=== PATIENT | male | born 1965 | race Caucasian/White ===

== ENCOUNTER → 2020-01-30 07:41 | Outpatient (CLI) | payer BC, SELFPAY ==
[2020-01-30 08:27] LABS: Basophils % 0.3 % (0.1-2.0); Eosinophils # 0.3 K/mm3 (0.0-0.4); Eosinophils % 4.1 % (0.1-12.0); Hematocrit 43.6 % (42.0-52.0); Hemoglobin 14.8 g/dL (14.1-18.0); Lymphocytes # 1.3 K/mm3 (0.7-4.5); Lymphocytes % 20.3 % (10-50); Mean Corpuscular Hemoglobin 31.6 pg (27.0-31.2); Mean Corpuscular Volume 92.8 fl (80-94); Mean Platelet Volume 8.2 fl (7.4-10.4); Monocytes # 0.3 K/mm3 (0.1-1.0); Monocytes % 4.7 % (1.7-9.3); Neutrophils # 4.5 K/mm3 (1.8-7.8); Neutrophils % 70.5 % (37.0-80.0); Platelet Count 305 K/mm3 (142-424); Red Cell Distribution Width 12.9 % (11.5-17.5); White Blood Count 6.4 K/mm3 (4.8-10.8)
[2020-01-30 09:16] LABS: Chloride 108 mmol/L (98-107); Potassium 4.3 mmoL/L (3.5-5.1); Sodium 137 mmol/L (136-145)
[2020-01-30 09:18] LABS: Alanine Aminotransferase 22 U/L (12-78); Aspartate Amino Transferase 21 U/L (17-59); Blood Urea Nitrogen 14 mg/dl (9-20); Estimated Glomerular Filt Rate 88 ml/min (>60); GFR (African American) 106 ML/MIN (>60)
[2020-01-30 09:19] LABS: Albumin Level 4.1 g/dl (3.5-5.0); Albumin/Globulin Ratio 1.9 (1.1-1.8); Alkaline Phosphatase 44 U/L (38-126); Anion Gap 8.3 mEq/L (5-15); Bilirubin,Total 0.6 mg/dl (0.2-1.3); Calcium 8.7 mg/dl (8.4-10.2); Carbon Dioxide 25 mmol/L (22.0-30.0); Cholesterol 122 mg/dl (140-200); Globulin 2.2 g/dL (1.3-3.2); Glucose 100 mg/dl (74-100); Magnesium 2.1 mg/dl (1.6-2.3); Total Protein,Serum 6.3 g/dl (6.3-8.2); Triglycerides 53 mg/dl (30-150); VLDL Cholesterol 11 mg/dL (0-40)
[2020-01-30 09:20] LABS: HDL Cholesterol 41 mg/dl (40-60)
[2020-01-30 09:30] LABS: Direct LDL Cholesterol 75.23 mg/dL (100-129)
[2020-01-30 09:35] LABS: Triiodothryronine (T3) Uptake 36 % (23.5-40.5)
[2020-01-30 09:36] LABS: Free Thyroxine Index 3.1 ug/dL (5.93-13.13); T4 (Thyroxine) 8.6 ug/dl (5.53-11.0)
[2020-01-30 11:08] LABS: 25-OH Vitamin D, Total 39.5 ng/mL (30-100)
[2020-01-31 08:21] LABS: Vitamin B12 337 pg/mL (232-1245)
[2020-02-13 18:14] LABS: Vitamin C 0.5 mg/dL
== END ==
PROVIDERS: Visit Provider Internal Medicine Adolescent Medicine
DX: R07.9 Chest pain, unspecified (principal); R53.83 Other fatigue; R53.81 Other malaise; R43.2 Parageusia; R43.0 Anosmia
CPT/HCPCS: 36415; 80053; 80061; 82180; 82306; 82607; 83735; 84436; 84443; 84479; 85025

== ENCOUNTER → 2020-02-03 09:12 | Outpatient (CLI) | payer BC, SELFPAY ==
--- NOTE | 2020-02-03 | CA_ITS ---
APPROVED REPORT Exam: Exercise Treadmill Technologist: Anne Jennings Ht: 5 ft 8 in Wt: 214 lbs BSA: 2.10 m2 HR: 75 bpm BP: 123/74 mmHg Indications: Chest pain at rest Medical History Medications: None,,,,, Stress Test Details Test: Julio César HR Resting HR: 85 bpm Max Heart Rate (APMHR): 166 bpm Max HR Achieved: 172 bpm Target HR (85% APMHR): 141 bpm % of APMHR: 103 Recovery HR: 96 bpm BP Resting BP: 123.0/74.0 mmHg Max BP: 200.0/86.0 mmHg Recovery BP: 122.0/72.0 mmHg ECG Clinical Exercise duration: 09:35 min Highest Stage Achieved: Exercise capacity: 10.1 METs Stress ECG Conclusion Resting ECG: Normal sinus rhythm, ST-T abnormalities in leads III and aVF Patient exercised 9:35 on Julio César Protocol. Test stopped due to shortness of air, fatigue. Symptoms: No chest pain. Arrhythmias/Ectopy: Rare PAC ST-T Changes: Normal ST response to exercise with no significant change in baseline inferior lead abnormalities. However, in recovery, there is exaggeration of baseline abnormalities as well as NS T wave changes in leads II, V5 and V6. Conclusion: Probably normal GXT. GXT only (no imaging) Electronically signed by : Ronan Castellanos, 02/08/2020 12:06:45
== END ==
PROVIDERS: PCP Internal Medicine Adolescent Medicine; Visit Provider Internal Medicine Adolescent Medicine
DX: R07.9 Chest pain, unspecified (principal)
CPT/HCPCS: 93017

== ENCOUNTER 2020-05-28 20:08 | Emergency (ER) | payer BC, OTHER, SELFPAY ==
[2020-05-28 20:18] VITALS: BP 116/76; PULSE 62; RESP 16; TEMP 36.9; O2SAT 99; BMI 32.5
--- NOTE | 2020-05-28 20:43 | HMH.EDGENADL ---
ED Disposition Clinical Impression: Corneal rust ring of right eye Disposition: Home, Self-Care Condition on Discharge: Good Instructions: DI for Eye Pain Referrals: Ronan Castellanos MD [Primary Care Provider] - - Critical Care Critical Care Time: No Attestation: On 05/28/20, the high probability of a clinically significant, sudden or life threatening deterioration of the following system(s) required my full and direct attention, intervention and personal management. The time I documented below is in addition to time spent performing reported procedures but includes the following listed in this critical care notation. Medical Decision Making - Medical Records Medical records reviewed: Yes: I reviewed the patient's medical records. - Cody Inquiry Pt receiving controlled substance: No Vital Signs: 05/28/20 20:18 Temperature 98.4 F Temperature Source Oral Pulse Rate [Right] 62 Respiratory Rate 16 Blood Pressure [Right Arm] 116/76 Blood Pressure Mean [Right Arm] 89 Blood Pressure Source [Right Arm] Automatic Cuff Blood Pressure Position [Right Arm] Sitting 02 Sat by Pulse Oximetry 99 Oxygen Delivery Method Room Air Medical Decision Narrative: 54-year-old male presenting for foreign object sensation. Occurred at 3 PM. Patient continues to have photophobia after washing his eyes and for object removal at home. Patient was given tetracaine drop, patient foreign object was removed via Q-tip. Fluorescein stain was negative for abrasion, ulcer, holli sign was also negative. Patient was prescribed erythromycin ointment, patient still has a rust ring present after foreign object removal, given that this is in his visual axis, patient will need ophthalmology follow-up for removal in the future. Amenable to plan, discharged home. visual acuity to be 20/40 in both eyes as well as combined which is his baseline. General Adult HPI - General Chief complaint: Eye Problems Stated complaint: AO 05/28@1500 FB in R Eye Time Seen by Provider: 05/28/20 20:30 Mode of Arrival: Ambulatory Source of Information: Patient Limitations: No Limitations Description of Symptoms (Recalled from ER Triage Doc. by RN): Pt was grinding off powder coat and got something in his right eye. Eye is red and watering. - History of Present Illness HPI narrative: 54-year-old male no past medical history presenting for eye pain. Patient has foreign object sensation in his right eye after grinding paint. This occurred around 3 PM. Patient was seen by family friend who is a nurse who attempted to remove the object with a Q-tip was unable to. Patient denies any visual acuity changes, headache, photophobia. And did do copious irrigation of his eye and used Visine but was unable to remove the object. Patient presents for work-up. Does not wear contact lens. - Related Data Previous Rx's Medication Instructions Recorded amoxicillin 875 mg tablet 875 mg PO BID 10 Days #20 tab 01/31/19 Allergies Allergy/AdvReac Type Severity Reaction Status Date / Time No Known Allergies Allergy Verified 01/31/19 11:31 [facility] History - Hepatitis A Screen Drug use history?: No High risk sexual behaviors?: No History of sexually transmitted infection?: No Currently employed?: No Childcare worker?: No Do you have indoor plumbing?: Yes Do you have electricity?: Yes Attestation statement:: This patient has been screened for Hepatitis A risk factors. I have reviewed the patient's past medical history: Yes Other Surgeries: Yes: No Previous Surgery Amputation: No - Social History Smoking Status: Current every day smoker Tobacco Type: cigarettes, smokeless tobacco # Packs/Day (cigarettes): 1 #Yrs smoked (if former smoker): 30 Alcohol Intake: never Substance Use Type: denies use Occupational Status: employed Family Hx:: No significant family history ROS Obtained: Yes All systems reviewed & no additional complaints Physical Exam - Gen
[2020-05-28 20:55] VITALS: BP 122/74; PULSE 64; RESP 16; TEMP 36.9; O2SAT 99
== END 2020-05-28 20:59 | disposition home or self-care (01) ==
PROVIDERS: Emergency Provider Emergency Medicine; PCP Internal Medicine Adolescent Medicine
DX: T15.01XA Foreign body in cornea, right eye, initial encounter (principal); F17.210 Nicotine dependence, cigarettes, uncomplicated; Y99.0 Civilian activity done for income or pay
CPT/HCPCS: 65220; 99281

== ENCOUNTER 2021-03-07 17:58 | Emergency (ER) | payer BC, SELFPAY ==
[2021-03-07 17:58] VITALS: BP 147/96; PULSE 76; RESP 20; TEMP 36.8; O2SAT 96; BMI 34.9
--- NOTE | 2021-03-07 19:30 | HMH.EDUTC ---
[facility] [place] Disposition Clinical Impression: Exposure to COVID-19 virus Disposition: Home, Self-Care Condition on Discharge: Good Instructions: DI for COVID-19 (Suspected or Confirmed ), Preventing the Spread of Coronavirus Discharge Instructions Additional Instructions: Drink plenty of fluids. Take tylenol for pain or fever. Return if you begin to have difficulty breathing. Follow up with your regular doctor. GO TO THE ER FOR ANY WORSENING SYMPTOMS Referrals: Ronan Castellanos MD [Primary Care Provider] - Time of Disposition: 19:34 Medical Decision Making - Medical Records Medical records reviewed: No: I reviewed the patient's medical records. - Cody Inquiry Pt receiving controlled substance: No Vital Signs: 03/07/21 17:58 03/07/21 19:40 Temperature 98.3 F 98.3 F Temperature Source Oral Pulse Rate 76 Pulse Rate [Left Radial] 76 Respiratory Rate 20 20 Blood Pressure 147/96 H Blood Pressure [Right Arm] 147/96 H Blood Pressure Mean [Right Arm] 113 Blood Pressure Source Automatic Cuff Blood Pressure Source [Right Arm] Automatic Cuff Blood Pressure Position Sitting Blood Pressure Position [Right Arm] Sitting 02 Sat by Pulse Oximetry 96 Oxygen Delivery Method Room Air Room Air Orders (Tests/Meds): ORDERS Category Date Time Status Covid-19 Nasal PCR ([facility]) Routine Lab 03/07/21 19:11 Received [facility] [place] HPI - General Stated complaint: covid test Time Seen by Provider: 03/07/21 19:30 Mode of Arrival: Ambulatory Source of Information: Patient Limitations: No Limitations Description of Symptoms (Recalled from Triage Doc. by RN): exposure to covid, no symptoms HEENT Symptoms (Recalled from RN notes): No Resp Symptoms (Recalled from RN notes): No Skin Symptoms (Recalled from RN notes): No MS Symptoms (Recalled from RN notes): No Functional Status (Recalled from RN notes): wnl - History of Present Illness Provider Complaint: He is here to get a covid test. He denies any symptom so far. - Related Data Previous Rx's Medication Instructions Recorded amoxicillin 875 mg tablet 875 mg PO BID 10 Days #20 tab 01/31/19 Allergies Allergy/AdvReac Type Severity Reaction Status Date / Time No Known Allergies Allergy Verified 01/31/19 11:31 - Worker's Comp Is this a Worker's Comp case?: No [facility] History - Hepatitis A Screen Drug use history?: No High risk sexual behaviors?: No History of sexually transmitted infection?: No Currently employed?: No Childcare worker?: No Do you have indoor plumbing?: Yes Do you have electricity?: Yes Attestation statement:: This patient has been screened for Hepatitis A risk factors. I have reviewed the patient's past medical history: Yes Other Surgeries: Yes: No Previous Surgery Amputation: No - Social History Smoking Status: Current every day smoker Tobacco Type: cigarettes, smokeless tobacco # Packs/Day (cigarettes): 1 #Yrs smoked (if former smoker): 30 Alcohol Intake: never Substance Use Type: denies use Occupational Status: employed Family Hx:: No significant family history ROS Obtained: Yes All systems reviewed & no additional complaints - Constitutional Constitutional: Reports system reviewed and no additional complaints, except as docu - Eyes Eyes: Reports system reviewed and no additional complaints, except as docu - ENT Ears, Nose, Mouth, and Throat: Reports system reviewed and no additional complaints, except as docu - Cardiovascular Cardiovascular: Reports system reviewed and no additional complaints, except as docu - Respiratory Respiratory: Reports system reviewed and no additional complaints, except as docu - Gastrointestinal Gastrointestingal: Reports: system reviewed and no additional complaints, except as docu Physical Exam - General General appearance: alert, in no apparent distress - Head Head exam: atraumatic, normocephalic, normal inspection - Eye Eye exam: Present: normal appearance
[2021-03-07 19:40] VITALS: BP 147/96; PULSE 76; RESP 20; TEMP 36.8; O2SAT 96
== END 2021-03-07 19:40 | disposition home or self-care (01) ==
PROVIDERS: Emergency Provider Nurse Practitioner Family; PCP Internal Medicine Adolescent Medicine
DX: Z20.822 Contact with and (suspected) exposure to COVID-19 (principal); F17.210 Nicotine dependence, cigarettes, uncomplicated
CPT/HCPCS: 99202; G0463; U0003

== ENCOUNTER → 2021-04-25 12:33 | Outpatient (CLI) | payer BC, SELFPAY | PROVIDERS: PCP Internal Medicine Adolescent Medicine; Visit Provider Nurse Practitioner | DX: Z20.822 Contact with and (suspected) exposure to COVID-19 (principal) | CPT/HCPCS: C9803; U0003; U0005 ==

== ENCOUNTER → 2021-08-29 15:53 | Outpatient (CLI) | payer BC, SELFPAY | PROVIDERS: Visit Provider Nurse Practitioner | DX: U07.1 COVID-19 (principal) | CPT/HCPCS: C9803; U0003; U0005 ==

== ENCOUNTER → 2021-09-08 10:39 | Outpatient (CLI) | payer BC, SELFPAY ==
[2021-09-08 10:53] LABS: Basophils # 0.1 K/mm3 (0-0.2); Basophils % 1.1 % (0.1-2.0); Eosinophils # 0.2 K/mm3 (0.0-0.4); Eosinophils % 2.1 % (0.1-12.0); Hematocrit 45.4 % (42.0-52.0); Hemoglobin 15.1 g/dL (14.1-18.0); Lymphocytes # 1.8 K/mm3 (0.7-4.5); Lymphocytes % 22.2 % (10-50); Mean Corpuscular HGB Conc 33.4 g/dL (31.8-35.4); Mean Corpuscular Volume 92.8 fl (80-94); Mean Platelet Volume 7.4 fl (7.4-10.4); Monocytes # 0.3 K/mm3 (0.1-1.0); Monocytes % 4.3 % (1.7-9.3); Neutrophils # 5.6 K/mm3 (1.8-7.8); Neutrophils % 70.3 % (37.0-80.0); Platelet Count 343 K/mm3 (142-424); Red Blood Count 4.89 M/mm3 (4.60-6.20); Red Cell Distribution Width 12.7 % (11.5-17.5)
[2021-09-08 11:03] LABS: Alanine Aminotransferase 45 U/L (12-78); Albumin Level 4.6 g/dl (3.5-5.0); Albumin/Globulin Ratio 1.7 (1.1-1.8); Alkaline Phosphatase 53 U/L (38-126); Anion Gap 10.5 mEq/L (5-15); Aspartate Amino Transferase 34 U/L (17-59); Bilirubin,Total 0.6 mg/dl (0.2-1.3); Blood Urea Nitrogen 11 mg/dl (9-20); Calcium 9.5 mg/dl (8.4-10.2); Carbon Dioxide 31 mmol/L (22.0-30.0); Chloride 103 mmol/L (98-107); Estimated Glomerular Filt Rate 77 ml/min (>60); GFR (African American) 94 ML/MIN (>60); Globulin 2.7 g/dL (1.3-3.2); Glucose 102 mg/dl (74-100); Potassium 4.5 mmoL/L (3.5-5.1); Sodium 140 mmol/L (136-145); Total Protein,Serum 7.3 g/dl (6.3-8.2)
== END ==
PROVIDERS: PCP Internal Medicine Adolescent Medicine; Visit Provider Nurse Practitioner Family
DX: R53.1 Weakness (principal)
CPT/HCPCS: 36415; 80053; 85025

== ENCOUNTER → 2023-04-02 10:10 | Outpatient (CLI) | payer BC, SELFPAY ==
--- NOTE | 2023-04-02 10:14 | XR_ITS ---
FINAL REPORT CLINICAL HISTORY: low back pain, right hip pain COMPARISON: None FINDINGS: LUMBOSACRAL SPINE SERIES Five views of the lumbosacral spine were obtained. There is no fracture present. Vertebrae are normal in height. There is no malalignment. There is mild anterior osteophyte formation at L3-4 and L4-5. IMPRESSION: Mild degenerative disc disease at L3-4 and L4-5. Reviewed, Interpreted and Dictated by Matt Berg MD Transcribed by Jeanette Lopez Authenticated and [facility]
--- NOTE | 2023-04-02 10:14 | XR_ITS ---
FINAL REPORT CLINICAL HISTORY: right hip pain COMPARISON: None FINDINGS: RIGHT HIP 3 views of the right hip demonstrate no acute fracture or dislocation. The joint spaces appear normal. The visualized bony structures are well aligned. No soft tissue abnormality is seen. IMPRESSION: No acute bony abnormality. Reviewed, Interpreted and Dictated by Matt Berg MD Transcribed by Jeanette Lopez Authenticated and [facility]
== END ==
PROVIDERS: PCP Nurse Practitioner Family; Visit Provider Nurse Practitioner Family
DX: M54.50 Low back pain, unspecified (principal); M25.551 Pain in right hip; M79.604 Pain in right leg
CPT/HCPCS: 72110; 73502

== ENCOUNTER 2023-04-18 09:00 | Outpatient (RCR) | payer BC, SELFPAY ==
--- NOTE | 2023-04-16 09:59 | HMH.PTOPEV ---
PT Outpatient Evaluation Rehab PT Outpatient Evaluation Start: 04/16/23 09:40 Freq: Status: Active Protocol: Document 04/16/23 09:40 PHONG (Rec: 04/16/23 09:58 PHONG [id number]) E-signed By Gm Ngo, PT Outpatient Therapy Subjective History Subjective History Patient is a 57 year old male presenting to outpatient PT with reports of acute LBP referring to R buttock starting approximately 4 weeks ago. Most recent hip x-ray negative, LS x-ray shows DDD. Patient has previously had an injection that provided no significant relief. Speical tests indicate R anterior innominant. No other comorbidities to report. New diagnosis of cancer in past 12 No months? Chief Complaint Pain,Stiff Symptom Type Sharp Symptoms Relieved By Rest/Positioning,Activity Symptoms Aggravated By Standing,Physical Activity, Walking Prior Functional Limitations None Current Functional Limitations Sleeping,Standing,Walking Lumbopelvic Eval Posture Thoracic Spine Posture Standing Position Increased Kyphosis Lumbar Spine Posture Standing Position Increased Lordosis Assistive device Assistive Devices None / NA Palapation tenderness right Lumbar/Sacral Palpation Findings Tenderness Lumbar/Sacral Palpation Overall Comment R SIJ, buttock mm 3/4 Accessory Movement S1 right Range of Motion Lumbar Spine Active Flexion Range of WNL Motion (degrees) Lumbar Spine Active Extension Range of 18 p! Motion (degrees) Left Lumbar Spine Lateral Flexion Active 17! Range of Motion (degrees) Right Lumbar Spine Lateral Flexion 19 Active Range of Motion (degrees) Lumbar Spine ROM Limitations Soft Tissue Tightness,Bony Restriction Manual Muscle Test Bilateral Knee Extension Strength Grade 5 Normal Knee Flexion Strength Grade 5 Normal Hip Flexion Strength Grade 5 Normal Extensor Hallucis Longus Strength Grade 5 Normal Ankle Dorsiflexion Strength Grade 5 Normal Gastronemius/Soleus Strength Grade 5 Normal Special Tests Lumbar Spine Screen Positive Hip Juan Miguel (GRACE) Test Positive Left,Positive Right Hip Leidy Test Positive Left,Positive Right Hip Piriformis Test Positive Left,Positive Right Hip Bowstring (Cram) Test Negative Left,Negative Right Sciatic Nerve Tension Test Negative Left,Negative Right
== END 2023-04-18 09:05 | disposition home or self-care (01) ==
LOC: PT 09:00
PROVIDERS: Visit Provider Nurse Practitioner Family
DX: M54.50 Low back pain, unspecified (principal); M79.604 Pain in right leg; M25.551 Pain in right hip; M19.90 Unspecified osteoarthritis, unspecified site
CPT/HCPCS: 97010; 97014; 97110; 97140; 97163; G0283

== ENCOUNTER 2023-08-27 14:17 | Outpatient (CLI) | payer BC, SELFPAY ==
[2023-08-27 14:38] LABS: Basophils % 0.3 % (0.1-2.0); Eosinophils # 0.3 K/mm3 (0.0-0.4); Eosinophils % 3.4 % (0.1-12.0); Hemoglobin 14.4 g/dL (14.1-18.0); Lymphocytes # 1.5 K/mm3 (0.7-4.5); Lymphocytes % 19.6 % (10-50); Mean Corpuscular HGB Conc 31.4 g/dL (31.8-35.4); Mean Corpuscular Hemoglobin 29.2 pg (27.0-31.2); Mean Corpuscular Volume 93.1 fl (80-94); Mean Platelet Volume 8.3 fl (7.4-10.4); Monocytes # 0.4 K/mm3 (0.1-1.0); Monocytes % 5.3 % (1.7-9.3); Neutrophils # 5.6 K/mm3 (1.8-7.8); Neutrophils % 71.5 % (37.0-80.0); Platelet Count 345 K/mm3 (142-424); Red Blood Count 4.94 M/mm3 (4.60-6.20); Red Cell Distribution Width 12.9 % (11.5-17.5); White Blood Count 7.8 K/mm3 (4.8-10.8)
[2023-08-27 14:58] LABS: Hemoglobin A1C 5.6 % (4.0-6.0)
[2023-08-27 15:14] LABS: 25-OH Vitamin D, Total 32.1 ng/mL (30-100)
[2023-08-27 15:16] LABS: Free T4 (Free Thyroxine) 1.09 ng/dl (0.78-2.19)
[2023-08-27 15:22] LABS: Chloride 104 mmol/L (98-107)
[2023-08-27 15:23] LABS: Potassium 4.7 mmoL/L (3.5-5.1); Sodium 141 mmol/L (136-145)
[2023-08-27 15:25] LABS: Alanine Aminotransferase 53 U/L (12-78); Alkaline Phosphatase 55 U/L (38-126); Anion Gap 15.7 mEq/L (5-15); Aspartate Amino Transferase 37 U/L (17-59); Bilirubin,Total 0.5 mg/dl (0.2-1.3); Blood Urea Nitrogen 15 mg/dl (9-20); Carbon Dioxide 26 mmol/L (22.0-30.0); Estimated Glomerular Filt Rate 69 ml/min (>60); GFR (African American) 83 ML/MIN (>60)
[2023-08-27 15:26] LABS: Albumin Level 4.4 g/dl (3.5-5.0); Albumin/Globulin Ratio 1.8 (1.1-1.8); Calcium 8.6 mg/dl (8.4-10.2); Chol/HDL Ratio 3.4 (1-3.5); Cholesterol 143 mg/dl (140-200); Globulin 2.4 g/dL (1.3-3.2); Glucose 85 mg/dl (74-100); HDL Cholesterol 42 mg/dl (40-60); Total Protein,Serum 6.8 g/dl (6.3-8.2); Triglycerides 57 mg/dl (30-150); VLDL Cholesterol 11 mg/dL (0-40)
[2023-08-27 15:43] LABS: Direct LDL Cholesterol 87.85 mg/dL (100-129)
[2023-08-27 15:56] LABS: Thyroid Stimulating Hormone 1.37 uIU/mL (0.465-4.68)
[2023-08-27 16:16] LABS: Vitamin B12 361 pg/mL (239-931)
[2023-08-27 16:29] LABS: Prostate Specific Ag Screen 0.7 ng/ml (0.0-4.0)
== END 2023-08-27 23:59 ==
LOC: LAB.DROPOF 14:17
PROVIDERS: PCP Nurse Practitioner Family; Visit Provider Nurse Practitioner Family
DX: I10 Essential (primary) hypertension (principal); Z13.1 Encounter for screening for diabetes mellitus; R53.83 Other fatigue; M79.604 Pain in right leg; M54.50 Low back pain, unspecified; Z12.5 Encounter for screening for malignant neoplasm of prostate
CPT/HCPCS: 80053; 80061; 82306; 82607; 83036; 83735; 84439; 84443; 85025; G0103

== ENCOUNTER 2023-09-16 07:08 | Outpatient (CLI) | payer SELFPAY ==
--- NOTE | 2023-09-16 07:08 | CT_ITS ---
APPROVED REPORT Campaign Worker: CLINICAL INDICATION Risk stratification, preventative care TECHNIQUE Image Acquisition: A 128 slice MDCT scanner ([employer] Biotecha View) was used for data acquisition. A noncontrast coronary calcium scan was performed. A CT attenuation threshold of 130 Hounsfield units (HU) was used for the detection of calcium in contiguous voxels of 1 sq mm in area to be counted as individual lesions. A tube voltage of 120 KVp was used. The patient received no medications prior to the coronary calcium CT. Image Reconstruction Transaxial images were reconstructed at 0.67 mm slide thickness. Data was reviewed interactively on an advanced workstation capable of 2 and 3-dimensional displays in all conventional reconstruction formats, including multiplanar reformations, maximum intensity projections, curved multiplanar reformations, and volume rendered reconstructions. When applicable, selected routine images describing the relevant coronary anatomy and pathology were saved and sent to PACS. Complications None Technical Quality Overall image quality was good. Total DLP (Dose-Length Product) is 161.9 mGy-cm. The reported value represents the total of one or more individual components during the CT acquisition of this date and at this time, and as such, the same value may appear in more than one CT report depending on the interpreting/reporting physicians. COMPARISON None FINDINGS CT Coronary Calcium Scoring LMA (Left Main Artery) = 0 LAD (Left Anterior Descending) = 0 LCX (Left Coronary Circumflex) = 14 RCA (Right Coronary Artery) = 0 Total Calcium Score = 14 using the AJ-130 method. There is no identifiable calcification in the aortic valve, mitral annulus or mitral valve, pericardium, or myocardium. IMPRESSION -Mild coronary artery calcification is present. -Total Calcium Score (Agatston Score) = 14 using the AJ-130 method. -The observed calcium score of 14 is at 47th percentile for subjects of the same age, sex, and race/ethnicity. The interpretation of the calcium heart score is based on the following continuum*: 0 = no calcified plaque detected (risk of coronary artery disease is very low ??? less than 5%) 1-10 = calcium detected in extremely minimal levels (risk of coronary diseases is still low ??? less than 10%) 11-100 = mild levels of plaque detected with certainty (mild or minimal narrowing of heart arteries is likely) 101-400 = definite,at least moderate levels of plaque detected (relatively high risk of a heart attack within 3-5 years) >401-999 = extensive levels of plaque detected (high risk of heart attack, high levels of vascular disease are present, high likelihood of at least one significant coronary narrowing) *The calcium heart score quantifies the burden of coronary calcification/plaque in the coronary arteries. The calcium heart score does not evaluate the presence or the burden of non-calcified (i.e. soft) plaque. The coronary and cardiac findings of this Coronary Calcium CT were reviewed, reported, and signed by Jose Manuel Vu MD (Foundry Superintendant). Conclusion Electronically signed by : Haleigh Vu MD 09/17/2023 10:11:34
== END 2023-09-16 23:59 ==
PROVIDERS: PCP Nurse Practitioner Family; Visit Provider Nurse Practitioner Family
DX: I25.84 Coronary atherosclerosis due to calcified coronary lesion (principal); G89.29 Other chronic pain; R07.9 Chest pain, unspecified; Z13.6 Encounter for screening for cardiovascular disorders
CPT/HCPCS: 75571

== ENCOUNTER 2023-09-17 17:23 | Outpatient (CLI) | payer BC, SELFPAY ==
--- NOTE | 2023-09-17 17:23 | MR_ITS ---
PROCEDURE INFORMATION: Exam: MR Right Lower Extremity Joint Without and With Contrast; Hip Exam date and time: 09/17/2023 5:43 PM Age: 58 years old Clinical indication: Pain; Hip; Right; Additional info: Right hip pain TECHNIQUE: Imaging protocol: Magnetic resonance imaging of the right lower extremity joint without and with contrast. Exam focused on the hip. Sequences: Coronal and axial large field of view sequences include the pelvis and both the left and right hips. Sagittal sequences are focused on the symptomatic hip. Contrast material: PROHANCE; Contrast volume: 22 ml; Contrast route: IV; COMPARISON: 1. CR XR HIP RT 2-3V W/PELVIS 04/02/2023 10:21 AM 2. MR LUMBAR SPINE WO/W CON 09/17/2023 5:43 PM FINDINGS: Limitations: Motion artifact. Bones/joints: Mild primary osteoarthritis involves the bilateral hips. There is no significant effusion involving either hip joint. There is no acute fracture or dislocation. No aggressive bone lesions are present. Labrum: Assessment of the hip labrum is limited on this predominantly large [id number] study without a grossly apparent tear. Bursae: A mild amount of edema is present in each greater trochanteric bursa region, which can be asymptomatic. TENDONS: Tendons of iliopsoas group: Unremarkable. No evidence of tear. Tendons of medial compartment of thigh: Unremarkable. No evidence of tear. Tendons of lateral rotators of hip: Unremarkable. No evidence of tear. Tendons of gluteal group: Unremarkable. No evidence of tear. Soft tissues: Unremarkable. Reproductive: There are bilateral small scrotal hydroceles, right greater than left. IMPRESSION: 1. 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 2. Mild amount of edema in each greater trochanteric bursa region, which can be asymptomatic. 3. Limited assessment of the hip labrum on this predominantly large [id number] study without a grossly apparent tear. 4. Small bilateral scrotal hydroceles.
--- NOTE | 2023-09-17 17:23 | MR_ITS ---
PROCEDURE INFORMATION: Exam: MR Lumbar Spine Without and With Contrast Exam date and time: 09/17/2023 5:43 PM Age: 58 years old Clinical indication: Low back pain TECHNIQUE: Imaging protocol: Magnetic resonance imaging of the lumbar spine without and with contrast. Contrast material: PROHANCE; Contrast volume: 22 ml; Contrast route: IV; COMPARISON: CR XR LUMBAR SPINE MIN 4V 04/02/2023 10:21 AM FINDINGS: Bones/joints: Vertebral body height, alignment and marrow signal are within normal limits. Lumbar spondylosis is noted with disc bulging, ligamentous thickening and facet arthropathy. Spinal cord: Visualized cord, conus medullaris and cauda equina are unremarkable without compression. L1-L2: No significant disc bulge or herniation. No severe spinal canal stenosis. No significant neural foraminal narrowing. L2-L3: At L2-L3 there is minor disc bulging confluence orthopnea ligament thickening but no significant canal narrowing and mild to moderate neural foraminal narrowing. L3-L4: At L3-L4 there is minor disc bulging, ligamentous thickening and facet arthropathy but no significant canal narrowing and moderate neural foraminal narrowing. L4-L5: At L4-L5 there is a broad-based disc bulge, superimposed right paracentral and foraminal protrusion, ligament thickening and facet arthropathy. There is mild to moderate canal narrowing and severe neural foraminal narrowing especially on the right. L5-S1: At L5-S1 there is no significant canal or foraminal narrowing. Soft tissues: Unremarkable. IMPRESSION: Lumbar spondylosis as described affecting mainly the neural foramina, worse at L4-L5.
--- NOTE | 2023-09-17 17:27 | XR_ITS ---
PROCEDURE INFORMATION: Exam: XR Orbits, MR Screening Exam date and time: 09/17/2023 5:29 PM Age: 58 years old Clinical indication: Screening exam; R/O metal in eyes , prior metal removed from eyes , HX of welding; Additional info: Rule out metallic foreign body for mri TECHNIQUE: Imaging protocol: XR of the orbits. Exam was performed for MR screening. Views: 1 or 2 views COMPARISON: No relevant prior studies available. FINDINGS: Sinuses: Visualized paranasal sinuses appear clear. Bones/joints: No fracture. Dental: Dental amalgam is present. No radiodensities are seen around the orbits to indicate metallic foreign body. Soft tissues: Unremarkable. Radiopaque device or foreign body: None. No evidence of device or foreign body. No visible contraindication for MRI on this exam. IMPRESSION: No radiodensities are seen around the orbits to indicate metallic foreign body.
[2023-09-17] MEDS: GADOTERIDOL INJ 17ML SYRINGE 22 ML IV (18:53)
[2023-09-17] MEDS: SODIUM CHLORIDE 0.9% 10ML SYR (RAD ONLY) 10 ML IV (18:53)
== END 2023-09-17 23:59 ==
LOC: RAD 17:23
PROVIDERS: PCP Nurse Practitioner Family; Visit Provider Nurse Practitioner Family
DX: M54.50 Low back pain, unspecified (principal); M79.604 Pain in right leg; M25.551 Pain in right hip; H05.53 Retained (old) foreign body following penetrating wound of bilateral orbits
CPT/HCPCS: 70200; 72158; 73723; 76376; A9576

== ENCOUNTER 2023-09-24 10:20 | Outpatient (CLI) | payer BC, SELFPAY ==
--- NOTE | 2023-09-24 10:25 | XR_ITS ---
FINAL REPORT CLINICAL HISTORY: left hip pain COMPARISON: None FINDINGS: LEFT HIP: 3 views of the left hip demonstrate no acute fracture or dislocation. The joint spaces appear normal. The visualized bony structures are well aligned. No soft tissue abnormality is seen. IMPRESSION: No acute bony abnormality. Reviewed, Interpreted and Dictated by Jordy Fabian III, MD Transcribed by Jeanette Lopez Authenticated and [facility]
--- NOTE | 2023-09-24 10:25 | XR_ITS ---
FINAL REPORT CLINICAL HISTORY: right hip pain COMPARISON: None FINDINGS: RIGHT HIP 3 views of the right hip including an AP view of the pelvis demonstrate no acute fracture or dislocation. The joint spaces appear normal. The visualized bony structures are well aligned. No soft tissue abnormality is seen. IMPRESSION: No acute bony abnormality. Reviewed, Interpreted and Dictated by Jordy Fabian III, MD Transcribed by Jeanette Lopez Authenticated and [facility]
== END 2023-09-24 23:59 ==
LOC: RAD 10:21
PROVIDERS: PCP Nurse Practitioner Family; Visit Provider Orthopaedic Surgery
DX: M25.551 Pain in right hip (principal); M25.552 Pain in left hip
CPT/HCPCS: 73502

== ENCOUNTER 2024-09-24 06:33 | Emergency (ER) | payer BC, SELFPAY ==
[2024-09-24 06:33] VITALS: BP 174/104; PULSE 75; RESP 18; TEMP 36.9; O2SAT 96; BMI 38.0
--- NOTE | 2024-09-24 06:34 | ECG_ITS ---
APPROVED REPORT Exam: Resting ECG HR:76 bpm ECG Measurements Heart Rate 76 AXES MI 162 P 52 QRSd 84 QRS 15 QT 360 T 3 QTc 390 Conclusion SINUS RHYTHM NONSPECIFIC T-WAVE ABNORMALITY BORDERLINE ECG No STEMI Electronically signed by : POONAM QUACH, 09/25/2024 05:58:13
--- NOTE | 2024-09-24 06:45 | XR_ITS ---
FINAL REPORT CLINICAL HISTORY: chest pain 12 hours COMPARISON: none FINDINGS: No acute pulmonary density is evident. There is no evidence of effusion or other pleural disease. The mediastinum has a normal appearance. The cardiac silhouette is unremarkable. IMPRESSION: Unremarkable chest exam. Reviewed, Interpreted and Dictated by Ayan Millan MD Transcribed by Jeanette Lopez Authenticated and [facility]
--- NOTE | 2024-09-24 06:52 | ED_ITS ---
Discharge Plan Disposition Patient Disposition: Home, Self-Care Condition: Good Prescriptions Prescriptions: No Action celecoxib [Celebrex] 200 mg capsule 200 mg PO BID Qty: 60 2RF hydrochlorothiazide 12.5 mg tablet See Rx Instructions .ROUTE .COMPLEX Qty: 90 0RF Dose Instruction: TAKE ONE TABLET BY MOUTH EVERY MORNING Rx Instructions: TAKE ONE TABLET BY MOUTH EVERY MORNING Referrals Follow up/Referrals: Og Cerda MD [Staff Physician] - See instructions Sari Cody APRN [Primary Care Provider] - See instructions Jose Manuel Vu MD [Staff Physician] - See instructions Activity Restrictions/Add. Instructions Additional Instructions/Restrictions: You were evaluated in the emergency department today. At this time, your labs are reassuring. EKG and heart enzymes look normal. Please follow-up very closely with primary care as well as with cardiology given your chest pain. Return to the emergency department right away for new or worsening symptoms. Clinical Impressions Clinical Impression: Chest pain Stand Alone Forms Stand Alone Forms: Work/School Release Instructions Patient Instructions: DI for Atypical Chest Pain Print Language Print Language: Citizen Of [place] Discharge ED Provider: Taty Diego HPI <Pj Penn MD - Last Filed: 09/24/24 07:04> General Chief Complaint: Chest Pain Stated Complaint: Chest Pain Time Seen by Provider: 09/24/24 06:45 History of Present Illness HPI narrative: 59-year-old male with known history of hypertension on hydrochlorothiazide he reports he has missed doses of his home medication recently presents to the ER with complaints of chest pressure that radiates to the left arm. Patient reports the left arm pain actually started before the chest pain. He reports the arm pain started approximately 24 hours ago, the chest pain and pressure started approximately 12 hours ago. This chest pain and arm pain have improved over the last 12 hours, he reports they are 2 out of 10 at this time. He reports he has had a headache and felt generally under the weather for the last few days without any other specific symptoms. He denies shortness of breath, numbness, tingling, or weakness, no nausea, vomiting, diarrhea, or abdominal pain. No peripheral edema. Patient reports no fevers or chills. He called Sari Cody, his primary care, and she recommended he take an additional hydrochlorothiazide, he did this but his symptoms persisted so he came to the ER. He did take his blood pressure medication prior to arrival. Patient reports he took Advil prior to arrival as well for a general frontal headache. No vision changes or other associated symptoms. Related Data Previous Rx's ?Medication ?Instructions ?Recorded celecoxib 200 mg capsule (Celebrex) 200 mg PO BID #60 caps 10/03/23 hydrochlorothiazide 12.5 mg tablet See Rx Instructions .Route 09/14/24 .COMPLEX #90 tabs Allergies Allergy/AdvReac Type Severity Reaction Status Date / Time Iodinated Contrast Media AdvReac Intermediate Vomiting Verified 01/07/24 08:28 [facility] <Pj Penn MD - Last Filed: 09/24/24 07:04> [facility] Disclaimer: The information contained in this section may have been updated after the patient was seen, as this information can be updated by other users. Medical History (Updated 09/24/24 @ 08:07 by Taty Diego DO) Bulging lumbar disc Piriformis syndrome of right side Exposure to COVID-19 virus Corneal rust ring of right eye Laceration of scalp without complication Surgical History (Updated 01/07/24 @ 08:33 by NICHO Summers) No history of previous surgery Social History Smoking Status: Current every day smoker tobacco type: cigarettes packs per day: 1 and smokeless tobacco alcohol intake: never substance use type: denies use current occupational status: employed Travel in the last 8 weeks: None Other Medical History Have you received the Flu Vaccine for this season: No Have you received the Pneumonia Vaccine: No <Pj Penn MD - Last Filed: 09/24/24 07:04> ROS Obtained: Yes Systems reviewed as appropriate & no additional complaints except as documented Per HPI Physical Exam <Pj Penn MD - Last Filed: 09/24/24 07:04> General General appearance: alert and in no apparent distress Head Head exam: atraumatic and normocephalic Eye Eye exam: Present PERRL and EOMI ENT ENT exam: Present mucous membranes moist Neck Neck exam: Present normal inspection and full ROM Chest Chest inspection: Present symmetric chest wall rise Respiratory Respiratory exam: Absent respiratory distress or stridor Cardiovascular Cardiovascular exam: Present regular rate and normal rhythm Abdominal Exam Abdominal exam: Present soft; Absent distention or tenderness Extremities Exam Extremities exam: Present full ROM Neurological Exam Neurological exam: Present alert and oriented X3; Absent motor sensory deficit Psychiatric Psychiatric exam: Present normal affect and normal mood Skin Skin exam: Present warm and dry HEART Score <Pj Penn MD - Last Filed: 09/24/24 07:04> HEART Score HEART Score assessment performed?: No <Taty DiegoDO - Last Filed: 09/24/24 15:20> HEART Score HEART Score assessment performed?: Yes History (anamnesis): Slightly suspicious ECG: Normal Age: 45-65 years Risk factors: 1-2 risk factors Troponin: </= normal limit HEART Score: 2 Critical Care <Pj Penn MD - Last Filed: 09/24/24 07:04> Critical Care Time Critical Care Time: No Medical Decision Making <Pj Penn MD - Last Filed: 09/24/24 07:04> Medical Records Medical records reviewed: Yes I reviewed the patient's medical records. MR Comment: Most recent family medicine visit with Sari Cody was reviewed by me. Review of her progress note demonstrates patient is intermittently compliant with HCTZ at home. She reportedly attempted to schedule yearly wellness visit on August 2024 for August unsuccessfully. He has had lumbar MRI with disc bulge, right hip MRI with osteoarthritis and bursitis, recommendation was for patient were to continue HCTZ daily and lifestyle modifications including BMI maintenance, limiting alcohol intake, limiting sodium intake. Cody Inquiry Pt receiving controlled substance: No Vital Signs Vital Signs: 09/24/24 06:33 09/24/24 06:57 09/24/24 07:00 Temperature 98.4 F Temperature Source Oral Pulse Rate 76 71 Pulse Rate [Left] 75 Respiratory Rate 18 Blood Pressure 130/81 Blood Pressure [Right Arm] 174/104 H Blood Pressure Mean [Right Arm] 127 02 Sat by Pulse Oximetry 96 96 Oxygen Delivery Method Room Air Room Air 09/24/24 07:30 09/24/24 08:13 Temperature 98.2 F Temperature Source Pulse Rate 72 69 Pulse Rate [Left] Respiratory Rate 20 Blood Pressure 138/93 H 147/84 H Blood Pressure [Right Arm] Blood Pressure Mean [Right Arm] 02 Sat by Pulse Oximetry 96 Oxygen Delivery Method Room Air Room Air Lab Data Labs: Lab Results 09/24/24 06:38: WBC 10.3, RBC 4.70, Hgb 14.7, Hct 42.4, MCV 90.2, MCH 31.3 H, MCHC 34.7, RDW 12.4, Plt Count 345, MPV 10.1, Neut % (Auto) 75.5, Lymph % (Auto) 13.4, Dundy % (Auto) 8.3, Eos % (Auto) 1.9, Baso % (Auto) 0.3, Neut # (Auto) 7.8, Lymph # (Auto) 1.4, Dundy # (Auto) 0.9, Eos # (Auto) 0.2, Baso # (Auto) 0.0, PT 9.6, INR 0.86 L, Sodium 140, Potassium 4.2, Chloride 101, Carbon Dioxide 31 H, Anion Gap 12.2, BUN 16, Creatinine 1.00, Estimated Creat Clear 128, Estimated GFR 76, Est GFR ( Amer) 93, Glucose 113 H, Calcium 9.1, Total Bilirubin 0.6, AST 39, ALT 52, Alkaline Phosphatase 59, Troponin I < 0.01, NT-Pro-B Natriuret Pep 30.4, Total Protein 7.5, Albumin 4.6, Globulin 2.9, Albumin/Globulin Ratio 1.6, HCV Ab ZARINA w/Rflx PCR Qn Negative, HIV Ag/Ab Combo Qual Negative 09/24/24 06:46: D-Dimer 0.58 H 09/24/24 06:55: SARS-CoV-2 (PCR) Not detected, Influenza A Untype (PCR) Not detected, Influenza Type B (PCR) Not detected 09/24/24 06:38 09/24/24 06:38 Response Orders (Tests/Meds): ED MEDICATIONS Discontinued Medications Generic Name Dose Route Start Last Admin Trade Name Freq PRN Reason Stop Dose Admin Acetaminophen 1,000 mg 09/24/24 06:51 09/24/24 07:05 Acetaminophen 500mg Tab PO 09/24/24 06:52 1,000 mg ONCE ONE Administration Aspirin 324 mg 09/24/24 06:45 09/24/24 07:05 Aspirin 81mg Chewable Tablet PO 09/24/24 06:46 324 mg ONCE ONE Administration Nitroglycerin 0.4 mg 09/24/24 06:45 Nitroglycerin 0.4mg Sl Tablet SL 09/25/24 06:45 [id number] PRN Chest Pain ORDERS Category Date Time Status XR chest 2V Stat Exams 09/24/24 06:45 Completed Complete Blood Count Auto Diff Stat Lab 09/24/24 06:38 Completed Comprehensive Metabolic Panel Stat Lab 09/24/24 06:38 Completed D-Dimer Stat Lab 09/24/24 06:46 Completed HIV Combo Routine Lab 09/24/24 06:38 Completed Hepatitis C Ab Qual. W/ RFX Routine Lab 09/24/24 06:38 Completed NT Pro Brain Natriuretic Pep. Stat Lab 09/24/24 06:38 Completed Prothrombin Time INR Stat Lab 09/24/24 06:38 Completed Rapid PCR Covid and Flu A/B Stat Lab 09/24/24 06:55 Completed Troponin I Stat Lab 09/24/24 12:30 Completed MDM Narrative Medical Decision Narrative: In summary, this 59-year-old male with known history of hypertension not at goal therapy associated with medication noncompliance presents to the emergency department today with chest pain, left arm pain. On initial evaluation patient is hemodynamically stable, afebrile, chest pain is not reproducible on exam and has been diminishing since the time of onset, he is somewhat hypertensive compared to his reported baseline which is allegedly in the 130s. He has no abnormalities on cardiopulmonary exam, no peripheral edema, no abdominal tenderness, no neurologic deficits despite complaining of frontal headache. Differential diagnosis includes but is not limited to ACS, PE, viral syndrome, MSK etiology, esophageal spasm, medication noncompliance, hypertension, viral syndrome including COVID or influenza, pneumothorax, pneumonia, among others. Based on these concerns, I ordered serum labs, cardiac workup, D-dimer, chest x- ray, viral swab. ECG personally interpreted demonstrates sinus rhythm, rate 76, normal axis, normal ME and QTc, no STEMI. Patient received aspirin, nitro initially for treatment. Labs and imaging pending at the time of physician shift change. Patient handed off to Dr. Diego for continued management and disposition pending workup. <Taty Diego, DO - Last Filed: 09/24/24 15:20> Vital Signs Vital Signs: 09/24/24 06:33 09/24/24 06:57 09/24/24 07:00 Temperature 98.4 F Temperature Source Oral Pulse Rate 76 71 Pulse Rate [Left] 75 Respiratory Rate 18 Blood Pressure 130/81 Blood Pressure [Right Arm] 174/104 H Blood Pressure Mean [Right Arm] 127 02 Sat by Pulse Oximetry 96 96 Oxygen Delivery Method Room Air Room Air 09/24/24 07:30 09/24/24 08:13 Temperature 98.2 F Temperature Source Pulse Rate 72 69 Pulse Rate [Left] Respiratory Rate 20 Blood Pressure 138/93 H 147/84 H Blood Pressure [Right Arm] Blood Pressure Mean [Right Arm] 02 Sat by Pulse Oximetry 96 Oxygen Delivery Method Room Air Room Air Lab Data Labs: Lab Results 09/24/24 06:38: WBC 10.3, RBC 4.70, Hgb 14.7, Hct 42.4, MCV 90.2, MCH 31.3 H, MCHC 34.7, RDW 12.4, Plt Count 345, MPV 10.1, Neut % (Auto) 75.5, Lymph % (Auto) 13.4, Dundy % (Auto) 8.3, Eos % (Auto) 1.9, Baso % (Auto) 0.3, Neut # (Auto) 7.8, Lymph # (Auto) 1.4, Dundy # (Auto) 0.9, Eos # (Auto) 0.2, Baso # (Auto) 0.0, PT 9.6, INR 0.86 L, Sodium 140, Potassium 4.2, Chloride 101, Carbon Dioxide 31 H, Anion Gap 12.2, BUN 16, Creatinine 1.00, Estimated Creat Clear 128, Estimated GFR 76, Est GFR ( Amer) 93, Glucose 113 H, Calcium 9.1, Total Bilirubin 0.6, AST 39, ALT 52, Alkaline Phosphatase 59, Troponin I < 0.01, NT-Pro-B Natriuret Pep 30.4, Total Protein 7.5, Albumin 4.6, Globulin 2.9, Albumin/Globulin Ratio 1.6, HCV Ab ZARINA w/Rflx PCR Qn Negative, HIV Ag/Ab Combo Qual Negative 09/24/24 06:46: D-Dimer 0.58 H 09/24/24 06:55: SARS-CoV-2 (PCR) Not detected, Influenza A Untype (PCR) Not detected, Influenza Type B (PCR) Not detected Response Orders (Tests/Meds): ED MEDICATIONS Discontinued Medications Generic Name Dose Route Start Last Admin Trade Name Freq PRN Reason Stop Dose Admin Acetaminophen 1,000 mg 09/24/24 06:51 09/24/24 07:05 Acetaminophen 500mg Tab PO 09/24/24 06:52 1,000 mg ONCE ONE Administration Aspirin 324 mg 09/24/24 06:45 09/24/24 07:05 Aspirin 81mg Chewable Tablet PO 09/24/24 06:46 324 mg ONCE ONE Administration Nitroglycerin 0.4 mg 09/24/24 06:45 Nitroglycerin 0.4mg Sl Tablet SL 09/25/24 06:45 Q5MINP PRN Chest Pain ORDERS Category Date Time Status XR chest 2V Stat Exams 09/24/24 06:45 Completed Complete Blood Count Auto Diff Stat Lab 09/24/24 06:38 Completed Comprehensive Metabolic Panel Stat Lab 09/24/24 06:38 Completed D-Dimer Stat Lab 09/24/24 06:46 Completed HIV Combo Routine Lab 09/24/24 06:38 Completed Hepatitis C Ab Qual. W/ RFX Routine Lab 09/24/24 06:38 Completed NT Pro Brain Natriuretic Pep. Stat Lab 09/24/24 06:38 Completed Prothrombin Time INR Stat Lab 09/24/24 06:38 Completed Rapid PCR Covid and Flu A/B Stat Lab 09/24/24 06:55 Completed Troponin I Stat Lab 09/24/24 12:30 Completed MDM Narrative Medical Decision Narrative: In summary, this 59-year-old male with known history of hypertension not at goal therapy associated with medication noncompliance presents to the emergency department today with chest pain, left arm pain. On initial evaluation patient is hemodynamically stable, afebrile, chest pain is not reproducible on exam and has been diminishing since the time of onset, he is somewhat hypertensive compared to his reported baseline which is allegedly in the 130s. He has no abnormalities on cardiopulmonary exam, no peripheral edema, no abdominal tenderness, no neurologic deficits despite complaining of frontal headache. Differential diagnosis includes but is not limited to ACS, PE, viral syndrome, MSK etiology, esophageal spasm, medication noncompliance, hypertension, viral syndrome including COVID or influenza, pneumothorax, pneumonia, among others. Based on these concerns, I ordered serum labs, cardiac workup, D-dimer, chest x- ray, viral swab. ECG personally interpreted demonstrates sinus rhythm, rate 76, normal axis, normal ME and QTc, no STEMI. Patient received aspirin, nitro initially for treatment. Labs and imaging pending at the time of physician shift change. Patient handed off to Dr. Diego for continued management and disposition pending workup. DO Johnathon: I assumed care of the patient at 7 AM, on my assessment, he is resting comfortably with no concerns or complaints. Blood pressure reassuring here with systolics in the 130s to 140s. Labs reassuring with reassuring CBC, reassuring chemistry with negative troponin, D-dimer this negative per years criteria. Workup is overall very reassuring. I independently interpreted chest x-ray prior to radiology read and noted no large focal consolidation or pneumothorax. Ultimately, given the patient is feeling okay with reassuring workup and exam, I feel it is appropriate for discharge home with close follow- up with primary care. I considered obtaining second troponin, however based on symptom duration greater than 12 hours and negative initial troponin with normal EKG, I do not feel that other troponin is indicated. Strict return precautions were given as well as instructions for close outpatient follow-up.
[2024-09-24 06:57] VITALS: PULSE 76
[2024-09-24 07:00] VITALS: BP 130/81; PULSE 71; O2SAT 96
[2024-09-24 07:00] LABS: Coronavirus 19, PCR Not Detected (NotDetected); Influenza A, PCR Not Detected (NotDetected); Influenza B, PCR Not Detected (NotDetected)
[2024-09-24 07:00] LABS: Basophils % 0.3 % (0.1-2.0); Eosinophils # 0.2 K/mm3 (0.0-0.4); Eosinophils % 1.9 % (0.1-12.0); Hematocrit 42.4 % (42.0-52.0); Hemoglobin 14.7 g/dL (14.1-18.0); Lymphocytes # 1.4 K/mm3 (0.7-4.5); Lymphocytes % 13.4 % (10-50); Mean Corpuscular HGB Conc 34.7 g/dL (31.8-35.4); Mean Corpuscular Hemoglobin 31.3 pg (27.0-31.2); Mean Corpuscular Volume 90.2 fl (80-94); Mean Platelet Volume 10.1 fl (7.4-10.4); Monocytes # 0.9 K/mm3 (0.1-1.0); Monocytes % 8.3 % (1.7-9.3); Neutrophils # 7.8 K/mm3 (1.8-7.8); Neutrophils % 75.5 % (37.0-80.0); Platelet Count 345 K/mm3 (142-424); Red Cell Distribution Width 12.4 % (11.5-17.5); White Blood Count 10.3 K/mm3 (4.8-10.8)
[2024-09-24] MEDS: ACETAMINOPHEN 500MG TAB 1000 MG PO (07:05)
[2024-09-24] MEDS: ASPIRIN 81MG CHEWABLE TABLET 324 MG PO (07:05)
[2024-09-24 07:12] LABS: Albumin Level 4.6 g/dl (3.5-5.0); Chloride 101 mmol/L (98-107); Potassium 4.2 mmoL/L (3.5-5.1); Sodium 140 mmol/L (136-145)
[2024-09-24 07:14] LABS: Blood Urea Nitrogen 16 mg/dl (9-20); Creatinine Clearance Estimated 128 mL/min (50-200); Estimated Glomerular Filt Rate 76 ml/min (>60); GFR (African American) 93 ML/MIN (>60)
[2024-09-24 07:15] LABS: Alanine Aminotransferase 52 U/L (12-78); Albumin/Globulin Ratio 1.6 (1.1-1.8); Alkaline Phosphatase 59 U/L (38-126); Anion Gap 12.2 mEq/L (5-15); Aspartate Amino Transferase 39 U/L (17-59); Bilirubin,Total 0.6 mg/dl (0.2-1.3); Calcium 9.1 mg/dl (8.4-10.2); Carbon Dioxide 31 mmol/L (22.0-30.0); Globulin 2.9 g/dL (1.3-3.2); Glucose 113 mg/dl (74-100); Total Protein,Serum 7.5 g/dl (6.3-8.2)
[2024-09-24 07:26] LABS: INR 0.86 (0.9-1.1); NT Pro Brain Natriuretic Pep. 30.4 pg/mL (0-125); Prothrombin Time 9.6 seconds (9.2-12.1)
[2024-09-24 07:27] LABS: Troponin I < 0.01 ng/ml (0.00-0.034)
[2024-09-24 07:30] VITALS: BP 138/93; PULSE 72; O2SAT 96
--- NOTE | 2024-09-24 07:47 | PC.NURSE ---
ROUNDED ON THE PT. THE PT VOICES THAT HE DOES NOT NEED ANYTHING AT THIS TIME. CALL LIGHT IS WITHIN REACH OF THE PT.
[2024-09-24 07:56] LABS: D-Dimer 0.58 ug/mL (0.0-0.5)
[2024-09-24 08:07] LABS: HIV Combo NEGATIVE (Negative)
[2024-09-24 08:13] VITALS: BP 147/84; PULSE 69; RESP 20; TEMP 36.8; O2SAT 98
[2024-09-24 08:16] LABS: Hepatitis C Ab Qual. W/ RFX NEGATIVE (Negative)
== END 2024-09-24 08:19 | disposition home or self-care (01) ==
PROVIDERS: Emergency Medicine; Emergency Provider Emergency Medicine; PCP Nurse Practitioner Family
DX: R07.9 Chest pain, unspecified (principal); R51.9 Headache, unspecified; Z72.0 Tobacco use; Z91.148 Patient's other noncompliance with medication regimen for other reason
CPT/HCPCS: 71046; 80053; 83880; 84484; 85025; 85378; 85610; 86803; 87389; 87636; 93005; 99284

== ENCOUNTER 2024-12-15 09:26 | Outpatient (CLI) | payer BC, SELFPAY ==
[2024-12-15 13:36] LABS: Microscopic, Urine URINE MICROSCOPIC (MICROSCOPIC)
[2024-12-15 13:50] LABS: Basophils # 0.1 K/mm3 (0-0.2); Basophils % 0.6 % (0.1-2.0); Eosinophils # 0.2 Kmm3 (0.0-0.4); Eosinophils % 2.3 % (0.1-12.0); Hematocrit 43.9 % (42.0-52.0); Hemoglobin 14.8 g/dL (14.1-18.0); Immature Granulocytes # 0.06 10^3uL; Immature Granulocytes % 0.7 %; Lymphocytes # 1.5 K/mm3 (0.7-4.5); Lymphocytes % 16.2 % (10-50); Mean Corpuscular HGB Conc 33.7 g/dL (31.8-35.4); Mean Corpuscular Hemoglobin 30.6 pg (27.0-31.2); Mean Corpuscular Volume 90.9 fl (80-94); Mean Platelet Volume 10.6 fl (7.4-10.4); Monocytes # 0.7 K/mm3 (0.1-1.0); Monocytes % 7.9 % (1.7-9.3); Neutrophils # 6.5 K/mm3 (1.8-7.8); Neutrophils % 72.3 % (37.0-80.0); Nucleated Red Blood Cells # 0 10^3/uL; Nucleated Red Blood Cells % 0 %; Platelet Count 381 K/mm3 (142-424); Red Blood Count 4.83 M/mm3 (4.60-6.20); Red Cell Distribution Width 12.2 % (11.5-17.5); Red Cell Distribution Width-SD 40.5 fL
[2024-12-15 13:58] LABS: Appearance,Urine CLEAR (Clear); Bilirubin,Urine Negative (Negative); Blood, Urine Negative (Negative); Color,Urine YELLOW (Yellow); Glucose,Urine (UA) Negative (Negative); Ketones,Urine Negative (Negative); Leukocyte Esterase,Urine Negative (Negative); Nitrate,Urine Negative (Negative); Protein,Urine Negative (Negative); Urobilinogen,Urine 0.2 EU/dl (0.2)
[2024-12-15 14:28] LABS: Alanine Aminotransferase 33 U/L (12-78); Albumin Level 4.3 g/dl (3.5-5.0); Albumin/Globulin Ratio 1.8 (1.1-1.8); Alkaline Phosphatase 49 U/L (38-126); Anion Gap 10.9 mEq/L (5-15); Aspartate Amino Transferase 26 U/L (17-59); Bilirubin,Total 0.6 mg/dl (0.2-1.3); Blood Urea Nitrogen 20 mg/dl (9-20); Calcium 9.4 mg/dl (8.4-10.2); Carbon Dioxide 26 mmol/L (22.0-30.0); Chloride 106 mmol/L (98-107); Chol/HDL Ratio 4.3 (1-3.5); Cholesterol 152 mg/dl (140-200); Estimated Glomerular Filt Rate 76 ml/min (>60); GFR (African American) 93 ML/MIN (>60); Globulin 2.4 g/dL (1.3-3.2); Glucose 89 mg/dl (74-100); HDL Cholesterol 35 mg/dl (40-60); Potassium 4.9 mmoL/L (3.5-5.1); Sodium 138 mmol/L (136-145); Total Protein,Serum 6.7 g/dl (6.3-8.2); Triglycerides 103 mg/dl (30-150); VLDL Cholesterol 21 mg/dL (0-40)
[2024-12-15 14:40] LABS: Direct LDL Cholesterol 84.13 mg/dL (100-129)
[2024-12-15 14:42] LABS: Free T4 (Free Thyroxine) 1.09 ng/dl (0.78-2.19)
[2024-12-15 14:43] LABS: Total Protein,Urine Random < 5.0 mg/dL (0.0-12.0)
[2024-12-15 15:00] LABS: Prostate Specific Ag Screen 0.7 ng/ml (0.0-4.0); Thyroid Stimulating Hormone 1.54 uIU/mL (0.465-4.68)
[2024-12-15 15:02] LABS: Bacteria,Urine Trace /lpf; Squamous Epithelial Cell,Urine Occasional #/hpf (0-5); WBC,Urine Occasional #/hpf (0-3)
[2024-12-15 16:06] LABS: Hemoglobin A1C 5.5 % (4.0-6.0)
[2024-12-15 20:25] LABS: Iron 101 ug/dL (49-181)
[2024-12-15 20:35] LABS: Total Iron Binding Capacity 339 ug/dL (261-462)
[2024-12-15 21:03] LABS: Ferritin 141 ng/ml (17.9-464)
== END 2024-12-15 23:59 | disposition home or self-care (01) ==
LOC: RT 09:27
PROVIDERS: PCP Nurse Practitioner Family; Visit Provider Nurse Practitioner Family
DX: I48.91 Unspecified atrial fibrillation (principal); R00.2 Palpitations
CPT/HCPCS: 80053; 80061; 81001; 82728; 83036; 83540; 83550; 84156; 84439; 84443; 85025; 87086; 93225; 93227; G0103

== ENCOUNTER 2024-12-16 14:57 | Outpatient (CLI) | payer BC, SELFPAY ==
[2024-12-16 15:32] LABS: Anion Gap 8.1 mEq/L (5-15); Blood Urea Nitrogen 18 mg/dl (9-20); Calcium 9.2 mg/dl (8.4-10.2); Carbon Dioxide 31 mmol/L (22.0-30.0); Chloride 104 mmol/L (98-107); Estimated Glomerular Filt Rate 62 ml/min (>60); GFR (African American) 75 ML/MIN (>60); Glucose 97 mg/dl (74-100); Potassium 4.1 mmoL/L (3.5-5.1); Sodium 139 mmol/L (136-145)
== END 2024-12-16 23:59 | disposition home or self-care (01) ==
LOC: LAB 14:57
PROVIDERS: PCP Nurse Practitioner Family; Visit Provider Internal Medicine
DX: R94.31 Abnormal electrocardiogram [ECG] [EKG] (principal); R79.89 Other specified abnormal findings of blood chemistry; R00.2 Palpitations
CPT/HCPCS: 36415; 80048; 82565; 84520; 85378

== ENCOUNTER 2024-12-17 13:17 | Outpatient (CLI) | payer BC, SELFPAY ==
[2024-12-17] MEDS: ONDANSETRON 4MG/2ML VIAL 4 MG IV (13:26)
[2024-12-17] MEDS: diphenhydrAMINE 50MG/ML VIAL 12.5 MG IV (13:26)
--- NOTE | 2024-12-17 13:30 | CT_ITS ---
FINAL REPORT TECHNIQUE: Axial imaging of the chest is obtained after the administration of contrast. 3-D MIP reformatted images were also obtained and reviewed per PE protocol. CLINICAL HISTORY: positive d-dimer FINDINGS: The pulmonary arteries are well filled. There is no evidence of pulmonary embolus. There is no aortic dissection. Heart size is mildly enlarged. There is no mediastinal, hilar, or axillary lymphadenopathy. The lungs are clear. There is no pleural or pericardial effusion. Limited evaluation of the upper abdomen demonstrates fatty infiltration of the liver. No acute osseous abnormality. IMPRESSION: No evidence of pulmonary embolism or aortic dissection. Reviewed, Interpreted and Dictated by Melly Gaona MD Transcribed by Meghna Rodney Authenticated and [facility]
[2024-12-17] MEDS: 0.9 % SODIUM CHLORIDE 50 ML VIAL 40 ML IV (14:26)
[2024-12-17] MEDS: IOPAMIDOL-370 (76%);100ML BOTTLE 70 ML IV (14:26)
[2024-12-17] MEDS: SODIUM CHLORIDE 0.9% 10ML SYR (RAD ONLY) 10 ML IV (14:26)
== END 2024-12-17 23:59 | disposition home or self-care (01) ==
LOC: RAD 13:18
PROVIDERS: PCP Nurse Practitioner Family; Visit Provider Nurse Practitioner
DX: R79.89 Other specified abnormal findings of blood chemistry (principal)
CPT/HCPCS: 71275; J1200; J2405; Q9967

== ENCOUNTER 2024-12-18 15:31 | Outpatient (CLI) | payer BC, SELFPAY | END 2024-12-18 23:59 | disposition home or self-care (01) | LOC: RT 15:32 | PROVIDERS: PCP Nurse Practitioner Family; Visit Provider Internal Medicine | DX: I49.1 Atrial premature depolarization (principal); I49.3 Ventricular premature depolarization; I48.91 Unspecified atrial fibrillation | CPT/HCPCS: 93270 ==

== ENCOUNTER 2024-12-25 08:25 | Outpatient (CLI) | payer BC, SELFPAY ==
--- NOTE | 2024-12-25 08:39 | CA_ITS ---
APPROVED REPORT EXAM: Comprehensive 2D, Doppler, and color-flow Echocardiogram Cork Sorter: Ruchi Saleh RDCS Ht: 5 ft 8 in Wt: 240lbs BSA: 2.21 BP: 120/80 mmHg Indications: DIZZINESS,PALPS M-Mode Dimensions RVDd 1.41 cm (0.9-2.6) LA Diam 3.62 cm (1.9-4.0) LVDd 6.00 cm (3.5-5.7) LVDs 4.56 cm (3.5-5.7) IVSd 0.91 cm (0.6-1.1) PWd 0.72 cm (0.6-1.1) EF (Teich) 47.00% FS 24.00% EDV (Teich) 180.00 mL TAPSE 2.02 (<1.7) ESV (Teich) 95.40 mL LV Diastology E Decel Time 153 (160-240 msec) E/A Ratio 1.2 Mitral Valve MV E Max Blair. 73.0 (40-130 cm/s) MV A Velocity 59.0 (40-130 cm/s) E/A Ratio 1.25 MV PHT 45.0 ms Left Ventricle The left ventricle is normal size. The left ventricular systolic function is normal. The left ventricular ejection fraction is within the normal range. There is normal left ventricular wall thickness. LVEF is 60%. There is normal LV segmental wall motion. The left ventricular diastolic function is normal. Right Ventricle Right ventricle is mildly dilated. The right ventricular systolic function is normal. Atria The left atrium size is normal. The right atrium size is normal. There is no Doppler evidence of interatrial shunt. Aortic Valve The aortic valve is mildly thickened. No aortic regurgitation is present. Mitral Valve The mitral valve is normal in structure. No evidence of mitral valve stenosis. Trace mitral regurgitation. Tricuspid Valve Tricuspid valve is grossly normal in structure and function. Trace tricuspid regurgitation. There is insufficient TR jet to estimate RVSP. Pulmonic Valve The pulmonary valve is normal in structure. Trace pulmonic regurgitation. Great Vessels The aortic root is normal in size. IVC is normal in size and collapses >50% with inspiration. Pericardium There is no pericardial effusion. Other Information Study Quality: Fair Conclusion Normal biventricular systolic function. Mild RV dilation. No significant valvular stenosis or regurgitation. Electronically signed by : Haleigh Vu MD 01/01/2025 23:09:39
--- NOTE | 2024-12-25 09:30 | CA_ITS ---
FINAL REPORT TECHNIQUE: Rodriguez scale, color and spectral doppler images of the bilateral carotid arteries were obtained. CLINICAL HISTORY: dizziness COMPARISON: None FINDINGS: Peak systolic velocity in the right internal carotid artery is 112 cm/sec. The internal carotid to common carotid artery ratio is 1.3. There is no significant carotid artery stenosis and no significant plaque formation. The right vertebral artery is normal in direction. Peak systolic velocity in the left internal carotid artery is 89 cm/sec. The internal carotid to common carotid artery ratio is 0.8. There is no significant carotid artery stenosis and no significant plaque formation. The left vertebral artery is normal in direction. IMPRESSION: No ultrasound evidence of hemodynamically significant carotid artery stenosis. Normal peak systolic velocities and normal internal to common carotid artery ratios bilaterally. Reviewed, Interpreted and Dictated by Melly Gaona MD Transcribed by Anna Lewis Authenticated and [facility][1]
== END 2024-12-25 23:59 | disposition home or self-care (01) ==
LOC: RT 08:25
PROVIDERS: PCP Nurse Practitioner Family; Visit Provider Nurse Practitioner Family
DX: I11.9 Hypertensive heart disease without heart failure (principal); N40.0 Benign prostatic hyperplasia without lower urinary tract symptoms; M25.471 Effusion, right ankle; M79.622 Pain in left upper arm; R00.2 Palpitations; R42 Dizziness and giddiness; R68.89 Other general symptoms and signs; Z13.220 Encounter for screening for lipoid disorders; Z12.5 Encounter for screening for malignant neoplasm of prostate
CPT/HCPCS: 93306; 93880

== ENCOUNTER 2024-12-29 06:10 | Outpatient (CLI) | payer BC, SELFPAY ==
--- NOTE | 2024-12-29 | CA_ITS ---
APPROVED REPORT Exam: Exercise Treadmill Technologist: Anne Jennings Ht: 5 ft 8 in Wt: 247 lbs BSA: 2.24 m2 HR: 62 bpm BP: 143/87 mmHg Stress Test Details Test: Exercise stress testing was performed using a Julio César protocol. HR Resting HR: 62 bpm Max Heart Rate (APMHR): 161 bpm Max HR Achieved: 153 bpm Target HR (85% APMHR): 137 bpm % of APMHR: 95 Recovery HR: 85 bpm HR response to stress: Normal HR response to stress BP Resting BP: 143.0/87.0 mmHg Max BP: 182.0/86.0 mmHg Recovery BP: 138.0/82.0 mmHg BP response to stress: Normal blood pressure response to stress. ECG Resting ECG: Sinus rhythm Stress EC.[address] depression Clinical Exercise duration: 7.15 min Exercise capacity: 9.2 METs Stress ECG Conclusion Symptoms: Dyspnea, racing heart, dizziness Arrhythmias/Ectopy: PVC ST-T Changes: 0.[address] depression Conclusion: Average exercise capacity. No evidence of ischemia at peak stress on ECG. Myoview images are reported separately. Electronically signed by : Haleigh Vu MD 12/30/2024 13:20:17
--- NOTE | 2024-12-29 06:30 | NM_ITS ---
APPROVED REPORT Exam: Nuclear Stress Test Indication: Chest pain, Abnormal EKG, HTN, High cholesterol, Tobacco use, Family history Patient Location: Outpatient Stress Tech: Anne Jennings [place] Tech:Nevin Mccracken, ARRT, RT (R)(N) Ht: 5 ft 8 in Wt: 240 lbs HR: 61 bpm BP: 143/87 mmHg BSA: 2.21 m2 TID: 1.23 BMI: 36.4 History: Chest pain, Abnormal EKG, HTN, High cholesterol, Tobacco use, Family history Procedure: Patient exercised on Julio César protocol 7:15 minutes and sec, resting heart rate 61 bpm, resting blood pressure 143/87 mmHg, with exercise maximum heart rate achived was 153 bpm which is 95 % of the maximum predicted heart rate and blood pressure was 182/86 mmHg. Test was stopped due to SOB. Patient denied any complaint of chest pain. Patient has exercise capacity, achieved 9.2 METs of workload on treadmill, the blood pressure response to exercise was . Cardiac Stress and Resting SPECT Images: Cardiac Stress and Resting SPECT images were obtained using technetium 99m Myoview 31.0 mCi stress and 10.37 mCi at rest. Resting and stress imaging in supine and prone positions demonstrate no evidence of fixed or reversible perfusion defects. There is increase in transient ischemic dilatation ratio (TID 1.23), suggestive of possible multivessel disease or balanced ischemia. Gated imaging demonstrates mild reduction global LV systolic function. LVEF is calculated at 47%. Conclusion: No evidence of fixed or reversible perfusion defects. There is increase in transient ischemic dilatation ratio (TID 1.23), suggestive of possible multivessel disease or balanced ischemia. Gated imaging demonstrates mild reduction global LV systolic function. LVEF is calculated at 47%. Electronically signed by : Haleigh Vu MD 12/29/2024 11:34:56
[2024-12-29] MEDS: SODIUM CHLORIDE 0.9% 10ML SYR (RAD ONLY) 10 ML IV ×2 (08:32)
[2024-12-29] MEDS: ISOTOPE MYOVIEW (PER STUDY) 1 DOSE IV (08:32)
== END 2024-12-29 23:59 | disposition home or self-care (01) ==
PROVIDERS: PCP Nurse Practitioner Family; Visit Provider Internal Medicine
DX: R94.39 Abnormal result of other cardiovascular function study (principal); R07.9 Chest pain, unspecified; R94.31 Abnormal electrocardiogram [ECG] [EKG]; R00.2 Palpitations; R79.89 Other specified abnormal findings of blood chemistry
CPT/HCPCS: 78452; 93017; 93018; A9502

== ENCOUNTER 2025-01-13 08:18 | Day surgery (SDC) | payer BC, SELFPAY ==
[2025-01-13] VITALS (12 sets, daily range): BP systolic 101–163; BP diastolic 57–94; PULSE 56–90; RESP 18–20; TEMP 36.6; O2SAT 92–97; BMI 37.5
--- NOTE | 2025-01-13 07:12 | IR_ITS ---
APPROVED REPORT Patient Location: Outpatient PROCEDURES Left heart catheterization Left ventriculogram Selective coronary angiogram INDICATION Abnormal CCTA, Normal Myoview Informed consent was obtained prior to the procedure. COMPLICATIONS NONE Estimated Blood Loss: LESS THAN 10 ML TECHNIQUE One percent lidocaine used to anesthetize the right anterior aspect of the wrist. The right radial artery was accessed via the Seldinger technique. A 6 Swiss sheath was placed in the right radial artery. 2.5 mg of Verapamil, 800 mcg of nitroglycerin, 1mg Lidocaine and 5000 U Heparin were given through the arterial sheath. The JL3 catheter was also used to perform left heart catheterization, left ventriculogram and selective coronary angiogram. At the end of the procedure the sheath was removed good hemostasis was achieved using Traclet band, patient was transferred to the postop holding area in stable condition. ANGIOGRAPHIC RESULTS The left main artery Normal The left anterior descending artery Mild 10% luminal regularities The circumflex artery Dominant mild 10% luminal regularities The right coronary artery Nondominant mild 10% luminal regularities The FREED ventriculogram reveals Horizontal heart with normal ejection fraction estimated at 60% The left ventricular end-diastolic pressure 10 mmHg IMPRESSION Mild nonflow limiting luminal regularities Normal ejection fraction Normal LVEDP PLAN 1. Medical management risk factor modification Electronically signed by : Og Cerda MD 01/13/2025 10:52:30
[2025-01-13 09:03] LABS: Basophils % 0.1 % (0.1-2.0); Hematocrit 43.4 % (42.0-52.0); Hemoglobin 14.9 g/dL (14.1-18.0); Immature Granulocytes # 0.05 10^3uL; Immature Granulocytes % 0.6 %; Lymphocytes # 0.9 K/mm3 (0.7-4.5); Lymphocytes % 9.4 % (10-50); Mean Corpuscular HGB Conc 34.3 g/dL (31.8-35.4); Mean Corpuscular Hemoglobin 30.3 pg (27.0-31.2); Mean Corpuscular Volume 88.2 fl (80-94); Mean Platelet Volume 10.3 fl (7.4-10.4); Monocytes # 0.1 K/mm3 (0.1-1.0); Monocytes % 1.5 % (1.7-9.3); Neutrophils % 88.4 % (37.0-80.0); Nucleated Red Blood Cells # 0 10^3/uL; Nucleated Red Blood Cells % 0 %; Platelet Count 365 K/mm3 (142-424); Red Blood Count 4.92 M/mm3 (4.60-6.20); Red Cell Distribution Width 11.9 % (11.5-17.5); Red Cell Distribution Width-SD 38.4 fL; White Blood Count 9.1 K/mm3 (4.8-10.8)
[2025-01-13 09:07] LABS: Chloride 105 mmol/L (98-107); Potassium 4.1 mmoL/L (3.5-5.1); Sodium 139 mmol/L (136-145)
[2025-01-13 09:10] LABS: Anion Gap 13.1 mEq/L (5-15); Blood Urea Nitrogen 16 mg/dl (9-20); Carbon Dioxide 25 mmol/L (22.0-30.0); Creatinine Clearance Estimated 126 mL/min (50-200); Estimated Glomerular Filt Rate 76 ml/min (>60); GFR (African American) 93 ML/MIN (>60)
[2025-01-13 09:11] LABS: Calcium 9.5 mg/dl (8.4-10.2); Glucose 150 mg/dl (74-100)
[2025-01-13] MEDS: diphenhydrAMINE 50MG/ML VIAL 50 MG IV (10:20)
[2025-01-13] MEDS: NITROGLYCERIN 800MCG/8ML SYR (CATH LAB) 800 MCG IA (10:20)
[2025-01-13] MEDS: HEPARIN 1,000 UNITS/500ML NS (CATH LAB) 3000 UNIT IV (10:20)
[2025-01-13] MEDS: LIDOCAINE 1% 10ML MDV 10 ML IJ (10:20)
[2025-01-13] MEDS: HEPARIN 1,000 UNITS/ML 10ML VIAL (CATH LAB) 5000 UNIT IV (10:20)
[2025-01-13] MEDS: METHYLPREDNISOLONE SOD SUCC 125MG VIAL 125 MG IV (10:21)
[2025-01-13] MEDS: FAMOTIDINE 20MG/2ML VIAL 20 MG IV (10:21)
[2025-01-13] MEDS: 0.9 % SODIUM CHLORIDE 500 ML 25 ML IV (10:21)
[2025-01-13] MEDS: VERAPAMIL 2.5MG/ML 2ML VIAL 2.5 MG IV (10:21)
[2025-01-13] MEDS: MIDAZOLAM HCL 1MG/ML 5ML VIAL 1 MG IV (10:51)
[2025-01-13] MEDS: FENTANYL 100MCG/2ML VIAL 50 MCG IV (10:51)
[2025-01-13] MEDS: IOPAMIDOL-370 (76%);100ML BOTTLE 50 ML IV (11:51)
== END 2025-01-13 13:36 | disposition home or self-care (01) ==
LOC: CATHLAB 08:19
PROVIDERS: PCP Nurse Practitioner Family; Visit Provider Internal Medicine
PROC: 4A023N7 Measurement of Cardiac Sampling and Pressure, Left Heart, Percutaneous Approach (ICD-10-PCS; CPT 93452; principal; 2025-01-13 08:15)
DX: I25.10 Atherosclerotic heart disease of native coronary artery without angina pectoris (principal); I10 Essential (primary) hypertension; E66.3 Overweight; I48.91 Unspecified atrial fibrillation; E78.5 Hyperlipidemia, unspecified; Z91.041 Radiographic dye allergy status; Z79.899 Other long term (current) drug therapy; Z79.01 Long term (current) use of anticoagulants; Z68.37 Body mass index [BMI] 37.0-37.9, adult; Z87.891 Personal history of nicotine dependence
CPT/HCPCS: 93458; 80048; 85025; 99152; C1725; C1769; J1200; J1644; J2919; J3010; J7040; Q9967

== ENCOUNTER 2025-01-21 14:39 | Outpatient (CLI) | payer BC, SELFPAY ==
[2025-01-21 15:03] LABS: Basophils % 0.4 % (0.1-2.0); Eosinophils # 0.2 Kmm3 (0.0-0.4); Eosinophils % 1.7 % (0.1-12.0); Hematocrit 40.5 % (42.0-52.0); Hemoglobin 13.8 g/dL (14.1-18.0); Lymphocytes # 1.9 K/mm3 (0.7-4.5); Lymphocytes % 18.7 % (10-50); Mean Corpuscular HGB Conc 34.1 g/dL (31.8-35.4); Mean Corpuscular Hemoglobin 30.3 pg (27.0-31.2); Mean Platelet Volume 9.8 fl (7.4-10.4); Monocytes # 0.7 K/mm3 (0.1-1.0); Monocytes % 7.5 % (1.7-9.3); Neutrophils % 70.7 % (37.0-80.0); Nucleated Red Blood Cells # 0 10^3/uL; Nucleated Red Blood Cells % 0 %; Platelet Count 336 K/mm3 (142-424); Red Blood Count 4.55 M/mm3 (4.60-6.20); Red Cell Distribution Width-SD 39.4 fL; White Blood Count 9.9 K/mm3 (4.8-10.8)
[2025-01-21 15:32] LABS: Magnesium 1.9 mg/dl (1.6-2.3)
== END 2025-01-21 23:59 | disposition home or self-care (01) ==
LOC: LAB 14:39
PROVIDERS: PCP Nurse Practitioner Family; Visit Provider Internal Medicine
DX: R93.1 Abnormal findings on diagnostic imaging of heart and coronary circulation (principal); R00.2 Palpitations; R94.31 Abnormal electrocardiogram [ECG] [EKG]; R00.0 Tachycardia, unspecified; R79.89 Other specified abnormal findings of blood chemistry; I48.91 Unspecified atrial fibrillation; R07.9 Chest pain, unspecified; R06.00 Dyspnea, unspecified
CPT/HCPCS: 83735; 85025

== ENCOUNTER 2025-03-03 15:42 | Outpatient (CLI) | payer BC, SELFPAY ==
--- OUTSIDE RECORDS SUMMARY | 2025-03-03 15:43 | XMS_ITS | Clinical Summary ---
[facility] Organization [facility] Address [address] [place] [address] Care Team Providers Care Web Press Roll Tender Name Role Phone Sari Cody APRN Primary Care Provider Allergies Active Allergy Reactions Criticality Noted Date Comments Iodine Nausea And Vomiting 10/14/2023 Medications CeleBREX 200 MG capsule 10/02/19 24 Active hydroCHLOROthiazi de 12.5 MG tablet 08/24/19 24 Active gabapentin (NEURONTIN) 100 MG capsuleIndication s:Lumbar radiculopathy Take 1 capsule by mouth 3 (Three) Times a Day. Take 1 at night for 3 days. Then take 1 in the morning and 1 at night for 3 days. Then take 1 in the morning, 1 at lunch, and 1 at night until the prescription is discontinued. 90 capsule 11/12/19 24 Active Active Problems No known active problems Family History Medical History Relation Name Comments Arthritis Father dad Hyperlipidemia Father dad Alcohol abuse Maternal Grandfather no Alcohol abuse Maternal Uncle no Cancer Mother mom Depression Mother mom Relation Name Status Comments Father dad Maternal Grandfather no Maternal Uncle no Mother mom Social History Tobacco Use Types Packs/Day Years Used Date Smoking Tobacco: Every Day Cigarettes 0.5 40 Smokeless Tobacco: Current Snuff Tobacco Cessation:Ready to Q uit: Not Asked; Counseling Given: Not Answered Alcohol Use Standard Drinks/Week Comments Not Currently 0 (1 standard drink = 0.6 oz pur e alcohol) Abuse Screen Answer Date Recorded Unsafe at Home or Work/School Not on file Feels Threatened by Someone? Not on file Does Anyone Keep You from Co ntacting Others or Doint Things Outside the Home? Not on file 09/30/2023 Physical Sign of Abuse Present Not on file 0 09/30/2023 Housing Stability Answer Date Recorded Current Living Arrangements Not on file 09/12 Potentially Unsafe Housing Conditions Not on althea e 09/30/2023 Family and Community Support Answer Mehrdad e Recorded Help with Day-to-Day Activities Not on file 09/30/2023 Lonely or Isolated Not on file 09/30/2023 Employment Answer Date Recorded Do you want help finding or keeping work or a arabella b? Not on file 09/30/2023 Disabilities Answer Date Recorded Concentrating, Remembering, or Making Decisions Difficulty Not on file 09/30/2023 Doing Errands Independently Difficulty Not on fi le 09/30/2023 Education Answer Date Recorded Help with school or training? Not on file Preferred Language Not on file 09/30/2023 Sex and Gender Information Value Date Recorded Sex Assigned at Not on file Legal Sex Male 3:45 PM EST Gender Identity Not on file Sexual Orientation Not on file Last Filed Vital Signs Vital Sign Reading Time Taken Comments Blood Pressure 112/86 11/11/2023 9:22 AM EDT Pulse - - Temperature 36.6 C (97.8 F) 10/14/2023 9:27 AM EST Respiratory Rate - - Oxygen Saturation - - Inhaled Oxygen Concentration - - Weight 117 kg (258 lb) 11/11/2023 9:22 AM EDT Height 172.7 cm (5' 8 ) 11/11/2023 9:22 AM EDT Body Mass Index 39.23 11/11/2023 9:22 AM EDT Plan of Treatment Health Maintenance Due Date Last Done Comments Hepatitis B (1 of 3 - 19+ 3-dose series) 1984 Pneumococcal Vaccine 50+ (1 of 2 - PCV) 1984 COLOGUARD 2010 COLON CANCER SCREENING 5 YEA R SIGMOIDOSCOPY 2010 COLONOSCOPY 2010 COLORECTAL CANCER SCREENING 2010 CT COLONOGRAPHY 2010 FECAL OCCULT BLOOD TEST 2010 FIT Testing (1 year) 2010 ZOSTER VACCINE (1 of 2) 2015 ANNUAL PHYSICAL 10/11/2023 HEPATITIS C SCREENING 10/11/2023 COVID-19 Vaccine (2023- season) 2024, 11/18/2020 INFLUENZA VACCINE 05/12/2025 05/17/2017 TDAP/TD VACCINES (2 - Td or Tdap) 01/05/2028 018 Insurance JUANA MEDEROS [id number] [facility] PPO Care Teams Web Press Roll Tender Relationship Specialty Start Date End Date Sari Cody APRN [address] [place] [address] PCP - General Nurse Practitioner 09/30/23
[2025-03-03 15:59] LABS: Hematocrit 38.4 % (42.0-52.0); Hemoglobin 13.3 g/dL (14.1-18.0); Immature Granulocytes % 0.4 %; Mean Corpuscular HGB Conc 34.6 g/dL (31.8-35.4); Mean Corpuscular Hemoglobin 30.7 pg (27.0-31.2); Mean Corpuscular Volume 88.7 fl (80-94); Nucleated Red Blood Cells % 0 %; Platelet Count 337 K/mm3 (142-424); Red Blood Count 4.33 M/mm3 (4.60-6.20); Red Cell Distribution Width-SD 39.5 fL; White Blood Count 6.7 K/mm3 (4.8-10.8)
[2025-03-03 16:22] LABS: Albumin Level 4.2 g/dl (3.5-5.0); Chloride 100 mmol/L (98-107); Sodium 135 mmol/L (136-145)
[2025-03-03 16:23] LABS: Potassium 4.1 mmoL/L (3.5-5.1)
[2025-03-03 16:25] LABS: Alanine Aminotransferase 53 U/L (12-78); Anion Gap 7.1 mEq/L (5-15); Aspartate Amino Transferase 37 U/L (17-59); Bilirubin,Unconjugated 0.3 mg/dL (0.0-1.1); Blood Urea Nitrogen 17 mg/dl (9-20); Carbon Dioxide 32 mmol/L (22.0-30.0); Cholesterol 141 mg/dl (140-200); Creatinine,Serum 1.10 mg/dl (0.66-1.25); Estimated Glomerular Filt Rate 69 ml/min (>60); GFR (African American) 83 ML/MIN (>60); Total Protein,Serum 6.6 g/dl (6.3-8.2); Triglycerides 153 mg/dl (30-150)
[2025-03-03 16:26] LABS: Alkaline Phosphatase 54 U/L (38-126); Bilirubin,Direct 0.6 mg/dl (0.0-0.4); Bilirubin,Indirect 0.3 mg/dL (0.0-0.9); Bilirubin,Total 0.9 mg/dl (0.2-1.3); Calcium 9.4 mg/dl (8.4-10.2); Glucose 98 mg/dl (74-100); HDL Cholesterol 32 mg/dl (40-60); Magnesium 2.1 mg/dl (1.6-2.3)
[2025-03-03 16:42] LABS: Free T4 (Free Thyroxine) 1.03 ng/dl (0.78-2.19)
[2025-03-03 17:54] LABS: Thyroid Stimulating Hormone 1.01 uIU/mL (0.465-4.68)
== END 2025-03-03 23:59 | disposition home or self-care (01) ==
LOC: LAB 15:42
PROVIDERS: PCP Nurse Practitioner Family; Visit Provider Internal Medicine
DX: I10 Essential (primary) hypertension (principal); R53.83 Other fatigue
CPT/HCPCS: 36415; 80048; 80061; 80076; 83735; 84439; 84443; 85025

== ENCOUNTER 2025-04-19 15:17 | Outpatient (CLI) | payer BC, SELFPAY ==
--- OUTSIDE RECORDS SUMMARY | 2025-04-19 15:19 | XMS_ITS | Clinical Summary ---
Author Organization [facility] Address [address] [place] [address] Care Team Providers Care Merchandise Clerk Name Role Phone Escobar Sari SNOW Primary Care Provider [phone] Allergies Active Allergy Reactions Criticality Noted Date [...] 10/11/2023 HEPATITIS C SCREENING 10/11/2023 COVID-19 Vaccine ( season) 2025, 11/18/2020 INFLUENZA VACCINE 05/12/2025 05/17/2017 TDAP/TD VACCINES (2 - Td or Tdap) 01/05/2028 018 Insurance JUANA MEDEROS [id number] [facility] PPO Care Teams Merchandise Clerk Relationship Specialty Start Date End Date Sari Cody APRN [address] [place] [id number] PCP - General Nurse Practitioner 09/30/23
[2025-04-19 17:19] LABS: Vitamin B12 407 pg/mL (239-931)
[2025-04-20 16:17] LABS: RPR W/RFX Titers Nonreactive (Nonreactive)
== END 2025-04-19 23:59 | disposition home or self-care (01) ==
LOC: LAB 15:18
PROVIDERS: PCP Nurse Practitioner Family; Visit Provider Specialist
DX: G93.40 Encephalopathy, unspecified (principal); I10 Essential (primary) hypertension; I48.0 Paroxysmal atrial fibrillation
CPT/HCPCS: 36415; 82607; 85651; 86225; 86235; 86592

== ENCOUNTER 2025-04-30 14:19 | Outpatient (CLI) | payer BC, SELFPAY ==
--- OUTSIDE RECORDS SUMMARY | 2025-04-30 14:22 | XMS_ITS | Clinical Summary ---
[facility] Address [address] [place] [address] Care Team Providers Care Clerical Aide Name Role Phone Escobar Sari SNOW Primary Care Provider [phone] Allergies Active Allergy Reactions Criticality Noted Date [...] or Tdap) 01/05/2028 018 Insurance JUANA MEDEROS [id number] [facility] PPO Care Teams Clerical Aide Relationship Specialty Start Date End Date Sari Cody APRN [address] [place] [id number] PCP - General Nurse Practitioner 09/30/23
--- NOTE | 2025-04-30 14:45 | MR_ITS ---
FINAL REPORT TECHNIQUE: Multiplanar MR, without contrast administration CLINICAL HISTORY: Memory loss, dizziness COMPARISON: None FINDINGS: Diffusion sequences show no signal abnormality to indicate acute infarct. No mass, hemorrhage or edema is seen. Ventricles are normal. Major vascular flow voids are intact. There is a dilated perivascular space in the right basal ganglia. There is a mucous retention cyst within the anterior left maxillary sinus measuring 27 mm. IMPRESSION: Unremarkable MR of the brain without contrast Reviewed, Interpreted and Dictated by Ayan Millan MD Transcribed by Christel Paez Authenticated and [facility]
== END 2025-04-30 23:59 | disposition home or self-care (01) ==
LOC: RAD 14:20
PROVIDERS: PCP Nurse Practitioner Family; Visit Provider Specialist
DX: G93.40 Encephalopathy, unspecified (principal); R41.3 Other amnesia; I10 Essential (primary) hypertension; I48.91 Unspecified atrial fibrillation
CPT/HCPCS: 70551

== ENCOUNTER → 2025-05-31 08:16 | Outpatient (CLI) | payer BC, SELFPAY | LOC: SL 06-04 08:16 | PROVIDERS: PCP Specialist; Visit Provider Specialist | DX: G47.33 Obstructive sleep apnea (adult) (pediatric) (principal); G47.36 Sleep related hypoventilation in conditions classified elsewhere; I10 Essential (primary) hypertension | CPT/HCPCS: G0399 ==

== ENCOUNTER 2025-07-31 10:59 | Outpatient (CLI) | payer BC, SELFPAY ==
--- OUTSIDE RECORDS SUMMARY | 2025-07-31 11:01 | XMS_ITS ---
Author Organization Unknown ENCOUNTERS Encounter Performer Location Date Diagnosis Diagnosis Status Pre Admit Mikalah [facility] [place] [address] [place] [address] [id number] Emergency Taty oJ[facility] [place] [address] [place] [id number] [facility] Emergency [facility] [place] [address] [place] [address] [id number] W[place] *Note: Encounters from your own facility or health system may be excluded. Allergies, Adverse Reactions, Alerts Allergen Type Severity Identification Date Iodinated Contrast Media drug allergy 3 [id number] Medications Name Date Quantity Days Supplied [facility] Number
--- OUTSIDE RECORDS SUMMARY | 2025-07-31 11:01 | XMS_ITS | Referral Summary ---
Author Organization [employer] ([place], [place], [place], [place], [place]) Address [address] [place] [address] Care Team Providers Care Gandy Dancer Name Role Phone [facility], Provider Not In The System Primary Care Provider Unavailable Encounters * This document contains information received from the source organization and may not represent a complete record from that organization. Date Type Department Care Team Description 05/26/2025 Travel from Last 3 Months Social History Tobacco Use Types Packs/Day Years Used Date Smoking Tobacco: Never Assessed Sex and Gender Information Value Date Recorded Sex Assigned at Not on file Legal Sex Male 10:58 AM CDT Gender Identity Not on file Sexual Orientation Not on file Plan of Treatment Not on file Insurance BLUE CROSS/BLUE SHIELD Care Teams Gandy Dancer Relationship Specialty Start Date End Date [facility], Provider Not In The System, [place] [address] PCP - General 05/26/25
--- OUTSIDE RECORDS SUMMARY | 2025-07-31 11:01 | XMS_ITS | Clinical Summary ---
Author Organization [facility] ([place], [place], [place], [place], [place]) Address [address] [place] [address] Care Team Providers Care Dramatic Arts Historian Name Role Phone [facility], Provider Not In The System Primary Care [...] Orientation Not on file Plan of Treatment Health Maintenance Due Date Last Done Comments CT Colonography 1965 Colonoscopy 1965 Colorectal Cancer Screening 1965 FOBT/FIT 1965 Fit-DNA (Cologuard) 1965 Sigmoidoscopy 1965 Depression Screening (12+) 1977 Tobacco Cessation Counseling and Screening (12+) 1977 HIV Screening 1980 Hepatitis C Screening 1983 Lipid Panel 2000 Pneumococcal 50+ years (1 of 1 - PCV) 2015 Shingles Vaccine (Zoster) (1 of 2) 2015 COVID-19 VACCINE (3 - season) 2025, 11/18/2020 Influenza Vaccine (#1) 2025 DTAP/TDAP/TD VACCINES (2 - Td or Tdap) 01/05/2028 Insurance BLUE CROSS/BLUE SHIELD Care Teams Dramatic Arts Historian Relationship Specialty Start Date End Date [facility], Provider Not In The System, [place] [address] PCP - General 05/26/25
--- OUTSIDE RECORDS SUMMARY | 2025-07-31 11:01 | XMS_ITS | Clinical Summary ---
Author Organization [facility] Address [address] [place] [address] Care Team Providers Care Catechist Name Role Phone Escobar Sari SNOW Primary Care Provider [phone] Allergies Active Allergy Reactions Criticality Noted Date [...] Health Maintenance Due Date Last Done Comments Pneumococcal Vaccine 50+ (1 of 2 - PCV) 1984 COLOGUARD 2010 COLON CANCER SCREENING 5 YEAR SIGMOIDOSCOPY 2010 COLONOSCOPY 2010 COLORECTAL CANCER SCREENING 2010 CT COLONOGRAPHY 2010 FECAL OCCULT BLOOD TEST 2010 FIT Testing (1 year) 2010 ZOSTER VACCINE (1 of 2) 2015 ANNUAL PHYSICAL 10/11/2023 HEPATITIS C SCREENING 10/11/2023 INFLUENZA VACCINE 03/12/2025 05/17/2017 Hepatitis B (1 of 3 - Risk 3-dose series) 2025 TDAP/TD VACCINES (2 - Td or Tdap) 01/05/2028 018 Insurance [facility] PPO Care Teams Catechist Relationship Specialty Start Date End Date Sari Cody APRN [address] [place] [address] PCP - General Nurse Practitioner 09/30/23
--- NOTE | 2025-07-31 11:04 | XR_ITS ---
PROCEDURE INFORMATION: Exam: XR Chest Exam date and time: 07/31/2025 11:05 AM Age: 60 years old Clinical indication: Cough; Additional info: Cough x5 weeks TECHNIQUE: Imaging protocol: Radiologic exam of the chest. Views: 2 views. COMPARISON: CT ANGIO CHEST PE PROTOCOL 12/17/2024 2:17 PM FINDINGS: Lungs: Stable mild prominence of the left hilum. No focal consolidation. Pleural spaces: Unremarkable. No pleural effusion. No pneumothorax. Heart/Mediastinum: Unremarkable. No cardiomegaly. Bones/joints: Unremarkable. IMPRESSION: No acute findings.
== END 2025-07-31 23:59 ==
LOC: RAD 11:00
PROVIDERS: PCP Nurse Practitioner Family; Visit Provider Student in an Organized Health Care Education/Training Program
DX: R05.2 Subacute cough (principal)
CPT/HCPCS: 71046